=== PATIENT | male | born 1970 | race Caucasian/White ===

== ENCOUNTER 2016-10-06 02:04 | Inpatient (IN) | payer BC ==
[2016-10-06] MEDS ORDERED: Diphth/Teta/Acell Pertusis* 0.5 ML VIAL ** FOR 6 WKS TO 7 YRS OLD IM ONE (03:54)
[2016-10-06] MEDS ORDERED: NS 0.9% 1000 ML* 1,000 ML IV ONE ×2 (04:03→06:03)
[2016-10-06 04:55] LABS: Hematocrit 47 % (42-52); Hemoglobin 15.7 g/dl (14.0-18.0); Mean Corpuscular HGB Conc 33 g/dl (31-36); Mean Corpuscular Hemoglobin 30 pg (27-31); Mean Corpuscular Volume 89 fL (80-94); Mean Platelet Volume 9 um3 (7.4-10.4); Red Cell Distribution Width 13 % (10.5-15); White Blood Count 15.4 10^3/ul (3.5-10.8)
[2016-10-06 04:56] LABS: Add Diff/Slide Review? Slide Review Added; Comments Flag Yes
[2016-10-06 05:04] LABS: Albumin 4.3 g/dL (3.2-5.2); BUN/Creatinine Ratio 16.5 (8-20); Calcium 9.2 mg/dL (8.6-10.3); EGFR African American 134.6 (>60); EGFR Non-African American 104.7 (>60); Globulin 2.9 g/dL (2-4); Potassium 3.8 mmol/L (3.5-5.0); Total Bilirubin 0.7 mg/dL (0.2-1.0); Total Protein 7.2 g/dL (6.4-8.9)
[2016-10-06] MEDS ORDERED: Iohexol 300* (CONTRAST) 10 ML SDV IV ONE (05:12)
[2016-10-06 05:40] LABS: Immature Granulocytes 19 % (0-9); Neutrophil % 67 % (38-83); RBC Morphology Normal (Normal)
[2016-10-06 07:09] LABS: Urine Bacteria Absent (Absent); Urine Bilirubin Negative (Negative); Urine Glucose Negative (Negative); Urine Nitrite Negative (Negative)
[2016-10-06 07:26] LABS: Hematocrit 43 % (42-52); Hemoglobin 14.3 g/dl (14.0-18.0); Mean Corpuscular HGB Conc 33 g/dl (31-36); Mean Corpuscular Hemoglobin 30 pg (27-31); Mean Corpuscular Volume 90 fL (80-94); Mean Platelet Volume 9 um3 (7.4-10.4); Red Blood Count 4.77 10^6/ul (4.0-5.4); Red Cell Distribution Width 13 % (10.5-15)
--- NOTE | 2016-10-06 08:32 | RAD ---
Indication: Head injury. Syncope. CT of the brain was performed without IV contrast. Ventricular structures are midline. No midline shift is noted. The extra-axial spaces are unremarkable. There is no evidence of intracranial mass or hemorrhage. There is no evidence of intracranial mass or hemorrhage noted. Mastoid air cells and paranasal sinuses are grossly unremarkable. Incidentally noted is a mucus retention cyst in the left maxillary sinus. IMPRESSION: No intracranial mass or hemorrhage is noted.
--- NOTE | 2016-10-06 08:57 | RAD ---
INDICATION: Puncture wound RIGHT anterior abdomen. Flank and chest pain. Post appendectomy. History of nephrolithiasis. COMPARISON: None. TECHNIQUE: Multidetector CT images were obtained from the lung apices to the ischial tuberosities with 139 mL Omnipaque 300 IV contrast. No oral contrast administered. CHEST REPORT: Clear lungs and pleural spaces. Negative for pneumothorax. Negative for mediastinal hematoma. Normal diameter thoracic aorta without evidence for traumatic injury accounting for motion artifact. Physiologic small volume of fluid in the superior pericardial recess without concern. Negative for cardiomegaly or pericardial effusion. Negative for thoracic lymphadenopathy. Negative for sternal, rib, thoracic spine, or other thoracic fracture. CHEST IMPRESSION: No evidence for traumatic thoracic injury. ABDOMEN PELVIS REPORT: Multiple sharply circumscribed water density hepatic cysts. Most of the cysts are smaller than 1 cm. Dominant 6.6 x 5.9 and 3.2 x 2.6 cm cyst at the RIGHT posterior hepatic segment. No suspicious focal hepatic lesions or evidence for hepatic laceration. Unremarkable gallbladder, pancreas, spleen. Negative for CT abnormality of the upper GI or small bowel. Post appendectomy. Unremarkable colon. Negative for ascites or free air. Small fat-containing umbilical hernia without inflammatory change. Normal adrenal glands. A few bilateral renal cortical cysts are present with 2 cysts measuring greater than 1 cm at the LEFT kidney including 3.7 x 4.9 cm cyst at the midpole and 3.5 x 2.9 cm cyst at the upper pole. No suspicious focal renal lesions or hydronephrosis. Symmetric nephrograms and pyelograms. Unremarkable ureters and urinary bladder. Symmetric seminal vesicles. Negative for lymphadenopathy. Normal diameter abdominal aorta and iliac arteries. Physiologic distention of the IVC. Variant LEFT hemisacralization of L5. Minimally displaced fractures of the RIGHT transverse processes of the L1 and L2 vertebral bodies without appreciable periosseous hematoma. Mild RIGHT flank subcutaneous edema without visualized loculated hematoma or subcutaneous emphysema. No additional fractures evident. ABDOMEN PELVIS IMPRESSION: 1. No abdominal pelvic visceral injuries evident. 2. Minimally displaced fractures of the RIGHT transverse processes of the L1 and L2 vertebral bodies without appreciable periosseous hematoma. No additional fractures evident. Results discussed with Dr. Chung in the ED 10/06/2016 8:50 AM EDT
[2016-10-06] MEDS ORDERED: HYDROcodone/ACETAMIN 5-325 MG* 1 TAB PO ONE (09:04)
[2016-10-06] MEDS ORDERED: Ibuprofen TAB* 800 MG PO PRN (11:34)
[2016-10-06] MEDS ORDERED: amLODIPine TAB* 5 MG PO SCH (14:00)
--- NOTE | 2016-10-06 15:20 | ECHO ---
Patient: [facility] Rec#: [id number] : 1970 Date: 10/06/2016 Age: 46y Height: 182.88 cm / 72.0 in Weight: 106.14 kg / 233.9 lbs Sex: M BSA: 2.28 Room#: 450 Admit Date#: 10/06/2016 Type: Inpatient Referring: Aura Nelson NP Reading: Patel Blackwell MD Lubrication Worker: Annamaria Berumen RDCS CC: Lesly Be NP Transthoracic Echocardiogram Indication: Syncope BP: 127/74 HR: 64 Rhythm: NSR Findings History: +family history of heart disease, admitted after a syncopal episode. Technical Comments: The study quality is good. Completed at 1426. Left Ventricle: The left ventricular chamber size is normal. Mild concentric left ventricular hypertrophy is observed. The estimated ejection fraction is 55-60%. There is no consistent Doppler evidence of clinically significant diastolic dysfunction. Left Atrium: The left atrial chamber size is normal. Right Ventricle: The right ventricle is mildly dilated. The right ventricular global systolic function is normal. Right Atrium: The right atrial cavity size is normal. Aortic Valve: The aortic valve is trileaflet. There is no evidence of aortic regurgitation. There is no evidence of aortic stenosis. Mitral Valve: The mitral valve leaflets are mildly thickened. There is a trace of mitral regurgitation. There is no evidence of mitral stenosis. Tricuspid Valve: The tricuspid valve leaflets are normal. There is no evidence of tricuspid valve regurgitation. Unable to estimate the right ventricular systolic pressure. There is no tricuspid stenosis. Pulmonic Valve: The pulmonic valve appears normal. There is mild pulmonic regurgitation. There is no pulmonic stenosis. Pericardium: The pericardium appears normal. Aorta: There is no dilatation of the ascending aorta. There is no dilatation of the aortic arch. There is no dilation of the aortic root. Pulmonary Artery: The main pulmonary artery appears normal. Venous: The venous system is not well visualized. Summary: There was not any prior study for comparison. Conclusions The left ventricular chamber size is normal. Mild concentric left ventricular hypertrophy is observed. The estimated ejection fraction is 50-55%. There is paradoxical septal wall motion secondary to conduction abnormality. There is a trace of mitral regurgitation. There is mild pulmonic regurgitation. Measurements Name Value Normal Range RVIDd (AP) 2D 3.2 cm (0.9 - 2.6) RVDdMajor (2D) 5.2 cm (2.2 - 4.4) RAd ISD 4CH 4.8 cm (3.4 - 4.9) RA (A4C)W 4.2 cm (2.9 - 4.6) IVSd (2D) 1.1 cm (0.6 - 1) LVPWd (2D) 1.3 cm (0.6 - 1) LVIDd (2D) 3.6 cm (3.6 - 5.4) LVIDs (2D) 2.7 cm - LV FS (2D) 24 % (25 - 45) Aortic Annulus 2.2 cm (1.4 - 2.6) Ao root diameter (2D) 3.5 cm (2.1 - 3.5) Ascending Ao 3.1 cm (2.1 - 3.4) Aortic arch 2.6 cm (1.8 - 3.4) Descending Ao 1.3 cm - LA dimension (AP) 2D 3.7 cm (2.3 - 3.8) LAd ISD 4CH 5.1 cm (2.9 - 5.3) LA ISD 4CH W 4.2 cm (2.5 - 4.5) Name Value Normal Range LA ESV SP 4CH (A/L) 44 ml - LA ESV SP 2CH (A/L) 98 ml - LA ESV BP (A/L) 70 ml - LA ESV BP (A/L) index 30.55 ml/m2 - LA ESV SP 4CH (MOD) 41 ml - LA ESV SP 2CH (MOD) 91 ml - Name Value Normal Range MV E-wave Vmax 0.9 m/sec - MV deceleration time 174 msec - MV A-wave Vmax 0.8 m/sec - MV E:A ratio 1.09 ratio - LV septal e' Vmax 0.09 m/sec - LV lateral e' Vmax 0.12 m/sec - LV E:e' septal ratio 10 ratio - LV E:e' lateral ratio 7.5 ratio - Name Value Normal Range AV Vmax 1.3 m/sec - AV VTI 28.4 cm - AV peak gradient 6.25 mmHg - AV mean gradient 2.73 mmHg - LVOT Vmax 1.2 m/sec - LVOT VTI 24.2 cm - LVOT peak gradient 5.58 mmHg - LVOT mean gradient 2.2 mmHg - Name Value Normal Range PV Vmax 0.6 m/sec - PV peak gradient 1.65 mmHg -
--- NOTE | 2016-10-06 15:58 | HP ---
HOSPITAL MEDICINE HISTORY AND PHYSICAL: DATE OF ADMISSION: 10/06/16 PRIMARY CARE PROVIDER: Lesly Be NP ATTENDING PHYSICIAN: Dr. Khurram Cook*(dictation provided by Aura Nelson NP) CHIEF COMPLAINT: Syncope. HISTORY OF PRESENT ILLNESS: Mr. Whitfield is a 46-year-old male with no significant past medical history, who presented to the hospital today after report of a syncopal episode with fall from a porch. Mr. Whitfield states that he has been in his normal state of health with no acute complaints. Yesterday, he worked in office during the day, in the evening, he drank 1 beer and then went to bed. In the middle of the night, he woke up, suddenly needed to urinate. He was staying in a [place] to his home, he got up, went to the door and went outside to go into the main house to use the bathroom. However, by the time he got to the deck of the yurt, he felt very lightheaded and began to have tunnel vision and suspected that he was going to faint. The next thing he remembers is being on the ground having fallen off the deck. He suspects that perhaps he was unconscious for about 20 minutes. He got up and went into the house and realized that he had some significant pain and therefore ended up coming to the emergency room for evaluation. Mr. Whitfield denies any other recent complaints. He has had no chest pain, no shortness of breath, no nausea, no abdominal pain. He has been eating and drinking normally. He has been afebrile. He has no acute weight loss. In the emergency room, Mr. Whitfield had workup including an EKG which showed no evidence of ischemia with a sinus rhythm. CT of the brain which showed no evidence of intracranial abnormality. He went on for a chest, abdomen, and pelvis CT, which did show that he had a minimally displaced fracture of the right transverse process of the L1-L2 vertebral bodies. This was without appreciable periosseous hematoma. No other injury was identified. I will note that the patient did have leukocytosis on arrival; the white blood cell count of 15.4 and a bandemia of 19%. His labs were rechecked 3 hours later and the bandemia had resolved and his white count fell to 12. He is afebrile. PAST MEDICAL HISTORY: None. MEDICATIONS: Ibuprofen p.r.n. ALLERGIES: No known drug allergies. FAMILY HISTORY: The patient reports that his mom had breast cancer. His dad had prostate cancer. His mom's father had a heart attack and in his 40s. His dad also had a heart attack in his 40s, but he is alive and well. 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 SOCIAL HISTORY: The patient states he drinks beer no more than 1 on most nights with perhaps 2 to 3 on the weekend. He has never had any symptoms of alcohol withdrawal. No reported drug use. No smoking. He states his daughter , Roula, will be the healthcare proxy. REVIEW OF SYSTEMS: A 14-point review of systems was completed with Mr. Whitfield and all those not mentioned above were negative. PHYSICAL EXAMINATION GENERAL: Mr. Whitfield is sitting up in the bed. He is in no acute distress. VITAL SIGNS: Temperature 97.5, pulse rate 55, respiratory rate 16, blood pressure 127/74. LUNGS: Clear to auscultation bilaterally with no accessory muscle use and good aeration. HEART: S1 and S2. No murmur, rub, or gallop, and regular. ABDOMEN: Soft, nontender with bowel sounds positive x4. EXTREMITIES: No cyanosis or edema. NEURO: He is alert and oriented x3. He moves all extremities equally. There is no facial asymmetry or focal weakness. Extraocular movements are intact. SKIN: The patient has abrasions on his right arm and a small abrasion to his right flank, and abrasion to the back of his left knee. DIAGNOSTIC STUDIES/LAB DATA: WBC 15.4 on arrival, and then 12 three hours later; hemoglobin 15.7, hematocrit 47, platelet count 239. He had a bandemia on arrival of 19%; this resolved on repeat check. Sodium 137, potassium 3.8, chloride 105, serum bicarbonate 26, BUN 13, creatinine 0.79, glucose 110. Urine shows no evidence of infection. EKG: Sinus rhythm with no evidence of ischemia and heart rate of 70. CT brain shows intracranial mass or hemorrhage noted. Chest, abdomen, and pelvis CT as follows: "No abdominal or pelvic visceral injuries evident, minimally displaced fractures of the right transverse process of the L1 and L2 vertebral bodies without appreciable periosseous hematoma. No additional fractures evident." ASSESSMENT AND PLAN: Mr. Whitfield is a 46-year-old male with no significant past medical history, who presents to the hospital today after syncopal episode in the middle of the night resulting in a fall from the deck, but no serious injury other than L1-L2 transverse process fracture. Our plans are for observation in the hospital for the followin. Syncope: No etiology for syncope is determined. He is not dehydrated. He has been feeling well, otherwise concern would be for a possible arrhythmia or other cardiac abnormality. Plan to monitor on telemetry overnight and he will also go on for a transthoracic echocardiogram. He has no chest pain or other symptom of acute coronary syndrome. CT brain was negative. 2. Fall: The patient only has L1-L2 transverse process fracture. His pain is well controlled. I have encouraged him to try Tylenol and ibuprofen as needed for pain. 3. DVT prophylaxis with SCDs. 4. Disposition will be to telemetry floor. 5. Code status is full code. TIME SPENT: Approximately 60 minutes was spent on the admission of this patient , more than half of the time was spent with the patient at the bedside reviewing the events leading up to this hospitalization, performing the physical examination, and reviewing the plan of care. AURA NELSON NP CC: Lesly Be NP* [id number]/[facility] #: [id number] MTDD
[2016-10-06] MEDS: Acetaminophen TAB* 325 MG PO PRN (22:15)
--- NOTE | 2016-10-07 17:14 | PN ---
Subjective Date of Service: 10/07/16 Interval History: Patient feels well today without complaints. Objective Active Medications: Acetaminophen (Tylenol Tab*) 650 mg PO Q6H PRN PRN Reason: PAIN Last Admin: 10/06/16 22:15 Dose: 650 mg Ibuprofen (Motrin Tab*) 800 mg PO Q8H PRN PRN Reason: PAIN Vital Signs 10/06/16 10/06/16 10/07/16 19:42 23:40 03:49 Temperature 98.0 F 97.4 F 98.2 F Pulse Rate 73 77 66 Respiratory 18 16 20 Rate Blood Pressure 116/64 131/67 123/81 (mmHg) O2 Sat by Pulse 96 100 97 Oximetry 10/07/16 10/07/16 10/07/16 07:29 08:00 10:51 Temperature 97.9 F 97.5 F Pulse Rate 69 80 Respiratory 18 18 17 Rate Blood Pressure 109/63 132/73 (mmHg) O2 Sat by Pulse 97 99 Oximetry 10/07/16 15:22 Temperature 97.6 F Pulse Rate 74 Respiratory 16 Rate Blood Pressure 124/74 (mmHg) O2 Sat by Pulse 99 Oximetry Oxygen Devices in Use Now: None Appearance: Wd/WN gentleman sitting up in bed in NAD Ears/Nose/Mouth/Throat: Mucous Membranes Moist Neck: No Thyroid Enlargement, Masses Respiratory: Clear to Auscultation Cardiovascular: NL Sounds; No Murmurs; No JVD Abdominal: NL Sounds; No Tenderness; No Distention, No Hepatosplenomegaly Lymphatic: No Cervical Adenopathy Extremities: No Clubbing, Cyanosis Skin: No Rash or Ulcers Neurological: Alert and Oriented x 3 Result Diagrams: 10/06/16 07:18 10/06/16 04:25 Assess/Plan/Problems-Billing Assessment: 46 year old who passed out and may or may not have lost control of his urine and was confused when he woke up. - Patient Problems (1) Loss of consciousness Current Visit: Yes Status: Acute Code(s): R40.20 - UNSPECIFIED COMA SNOMED Code(s): 131065935 Comment: I am concerned about seizure. Discussed with Dr. Ansari who will see the patient. Order MRI and EEG. Patient also had an episode a couple of years ago where he woke up and had lost control of his urine in the middle of the night. (2) DVT prophylaxis Current Visit: Yes Status: Acute Code(s): WKU6475 - SNOMED Code(s): 086908850 Comment: heparin sub q (3) Full code status Current Visit: Yes Status: Acute Code(s): Z78.9 - OTHER SPECIFIED HEALTH STATUS SNOMED Code(s): 092879414
[2016-10-07] MEDS: Acetaminophen TAB* 325 MG PO PRN (23:32)
--- NOTE | 2016-10-08 12:56 | CONS ---
NEUROLOGY CONSULT: DATE OF CONSULT: 10/08/16 REFERRING PHYSICIAN: Aura Nelson NP. PRIMARY CARE PHYSICIAN: Lesly Be NP. LOCATION: He is in inpatient room 450. CHIEF COMPLAINT: Syncope. HISTORY OF PRESENT ILLNESS: Presley Whitfield is a 46-year-old right-handed man who got up in the middle of the night on 10/06/16 as he had to urinate. He was sleeping outside in a hut and remembers exiting the hut and closing the door behind him. He felt lightheaded as though he was going to faint and started to turned around to go back in to lie down. He developed tunnel vision and then loss of vision and loss of consciousness. He came to on the ground outside on a deck having smashed into a bunch of pots and a sculpture about 3 feet from where he had been standing. He had a bump on his head and his back was sore and he had cuts on his arms. He made it back into the hut and changed his cloths, which were wet as he had been laying on the ground and which was wet. He realized that he was injured and then contacted his daughter who is in the house and she brought him to the emergency room and he was admitted. He believes he was on the ground for perhaps 20 minutes. He knew where he was when he came to and was able to get back into the hut and change his cloths. He was not incontinent of bowel and he is not sure if he was incontinent of urine as his cloths were wet from being outside. He had not bitten his tongue. There is no prior history of faints and no history of seizures. He has been knocked out twice when he was about a college age student when he banged his head in various circumstances. There is no history of faints, lightheadedness, or heart disease. He had not been ill recently. When he got up to in the middle of the night to urinate, he had his usual sense of bladder pressure, but nothing unusual. The one exception is he felt like he had to have a bowel movement at the same time. He had one beer and had late dinner at about 7:30 and went to bed about 9:30. He did not have more than one beer. He does not recall any shortness of breath or chest pain. He had a mild headache last night, but generally does not get headaches other than perhaps once a month or if he is sick. Evaluations when he came to the hospital is notable for CT of the brain, which I reviewed and was interpreted as normal. He had a CT of the abdomen and pelvis revealing a right transverse process fracture of L1 and L2 vertebral bodies. He had an elevated white blood cell count of 15.4 with 90% bandemia when he came in, which resolves spontaneously. He has not had any fevers. PAST MEDICAL HISTORY: His past medical history is notable for excellent health. There is no history of hypertension, heart disease, or diabetes. MEDICATIONS: He does not take any prescription medications. ALLERGIES: He does not have any drug allergies. FAMILY HISTORY: Notable for traumatic brain injury in his father who then developed epilepsy. Grandmother had multiple sclerosis and might have had seizures. His daughter has had syncopal episodes when she had blood drawn. SOCIAL HISTORY: He drinks about one beer per night most. He does not smoke. 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 REVIEW OF SYSTEMS: Negative for significant change in weight, fevers, or chills. He has not had any recent abdominal problems. He does have a sore back since this injury as well as a sore arm. He has not had any breathing problems. PHYSICAL EXAMINATION: He is overweight. He has been afebrile throughout his hospital stay. Blood pressure most recently 127/65 and has been running generally in that range throughout his hospital stay. Heart rate is about 70 and regular and respirations 16. Oxygen saturation is 99% on room air. Lungs are clear bilaterally. Head is atraumatic, other than mild abrasion in the right worship. Oral mucosa is moist and atraumatic. Heart is in a regular rate and rhythm without murmurs heard. Carotid pulses are present and I do not hear any cervical bruits. He has an abrasion in the right shoulder. Neurological exam, pupils react equally from 4 down to 2.5 mm. Funduscopic exam reveals sharp discs bilaterally. Eye movements are normal and visual ca are full to confrontation. Facial musculature is intact and symmetric. Facial sensation to light touch is intact and symmetric. Palate and tongue are appear normal, tongue protrudes in the midline and palate rises symmetrically. Speech is clear without dysarthria. Hearing is intact bilaterally and neck strength is intact. Motor exam is a little limited by back pain, but he has normal muscle tone, bulk , and strength proximally and distally in the upper and lower extremities. There is no pronator drift. There is no rest or action tremor in finger-to- nose maneuver. He is not able to do a [id number] because of the back pain. Sensory exam is intact to light touch and vibration in the limbs. Romberg sign is absent. Gait is cautious because of the back pain, but he is quite stable. There is no ataxia. Deep tendon reflexes are intact and symmetric in upper and lower extremities and plantar responses on flex bilaterally. Mental status finds him to be alert and oriented, he is an excellent detailed historian. He is fully oriented to person, place, and time and he is able to give good detail other than the time that he was unconscious. Attention, concentration, and fund of knowledge are all adequate. Language is fluent. DIAGNOSTIC STUDIES/LAB DATA: Includes CBC mentioned above. Chemistry profile is unremarkable, lactic acid yesterday morning was 0.8. Liver enzymes are normal. Urinalysis notable for trace red blood cells and otherwise unremarkable. Urine specific gravity was high; however, at 1.035. IMPRESSION: Is that of a single syncopal episode. He had typical premonitory symptoms of syncope and was fully oriented when he came to. He may have had a concussion as well as he was out for a fairly prolonged period of time and had hit his head. Given his age and lack of prior syncopal episodes, I agree he needs a full cardiac workup. He he has had an echocardiogram, which was interpreted as normal and his EKG looks normal with normal intervals. He has a MRI of the brain pending and should have an EEG as well. Unless those show abnormalities, I think the diagnosis would be a single syncopal episode. [id number]/[facility] #: [id number] [facility]
--- NOTE | 2016-10-08 14:49 | PN ---
Subjective Date of Service: 10/08/16 Interval History: Patient without complaints today. Objective Active Medications: Acetaminophen (Tylenol Tab*) 650 mg PO Q6H PRN PRN Reason: PAIN Last Admin: 10/07/16 23:32 Dose: 650 mg Ibuprofen (Motrin Tab*) 800 mg PO Q8H PRN PRN Reason: PAIN Vital Signs 10/07/16 10/07/16 10/07/16 15:22 19:24 23:28 Temperature 97.6 F 98.1 F 97.8 F Pulse Rate 74 80 70 Respiratory 16 16 16 Rate Blood Pressure 124/74 124/67 124/79 (mmHg) O2 Sat by Pulse 99 98 98 Oximetry 10/08/16 10/08/16 10/08/16 03:52 07:45 08:00 Temperature 97.7 F 97.5 F Pulse Rate 61 73 Respiratory 16 16 Rate Blood Pressure 115/74 127/65 (mmHg) O2 Sat by Pulse 99 99 Oximetry 10/08/16 11:34 Temperature 97.4 F Pulse Rate 76 Respiratory Rate Blood Pressure 129/72 (mmHg) O2 Sat by Pulse 100 Oximetry Oxygen Devices in Use Now: None Appearance: WD/WN gentleman sitting up in bed in NAD Eyes: No Scleral Icterus Ears/Nose/Mouth/Throat: Mucous Membranes Moist Neck: NL Appearance and Movements; NL JVP, No Thyroid Enlargement, Masses Respiratory: Clear to Auscultation Cardiovascular: NL Sounds; No Murmurs; No JVD, RRR Abdominal: NL Sounds; No Tenderness; No Distention, No Hepatosplenomegaly Lymphatic: No Cervical Adenopathy Extremities: No Edema, No Clubbing, Cyanosis Skin: No Rash or Ulcers Neurological: Alert and Oriented x 3 Result Diagrams: 10/06/16 07:18 10/06/16 04:25 Assess/Plan/Problems-Billing Assessment: 46 year old who passed out and may or may not have lost control of his urine and was confused when he woke up. - Patient Problems (1) Loss of consciousness Current Visit: Yes Status: Acute Code(s): R40.20 - UNSPECIFIED COMA SNOMED Code(s): 651364026 Comment: For MRI and EEG in am. Appreciate neuro's input. (2) DVT prophylaxis Current Visit: Yes Status: Acute Code(s): AZL8561 - SNOMED Code(s): 049532271 Comment: heparin sub q (3) Full code status Current Visit: Yes Status: Acute Code(s): Z78.9 - OTHER SPECIFIED HEALTH STATUS SNOMED Code(s): 603363662
--- NOTE | 2016-10-09 11:01 | RAD ---
INDICATION: Possible seizure. COMPARISON: Comparison is made with a prior CT of the brain from October 06, 2016. TECHNIQUE: Sagittal T1, axial T1, T2, susceptibility, FLAIR and diffusion weighted images were obtained. FINDINGS: The ventricles and cisterns appear to be within normal limits. There is prominence of the CSF spaces adjacent to the frontal lobes on both sides secondary to either subdural hygromas or atrophy. No significant focal abnormality or mass effect is seen. No focal temporal lobe volume loss is seen. The hippocampal formations appear to be symmetric and within normal limits. No areas of restricted diffusion are present. There is no evidence for infarct or hemorrhage. There is a 2.0 x 1.8 cm nodular lesion in the left maxillary sinus most consistent with a mucous retention cyst or polyp. There is also opacification of a single right ethmoid air cell. The paranasal sinuses and mastoid air is is otherwise appear clear. IMPRESSION: PROMINENT CSF SPACES ADJACENT TO THE FRONTAL LOBES MOST CONSISTENT WITH SUBDURAL HYGROMAS OR LESS LIKELY FOCAL ATROPHY.
[2016-10-09 16:22] VITALS: BP 139/82
--- NOTE | 2016-10-10 10:33 | EEG ---
ELECTROENCEPHALOGRAPHY: DATE OF STUDY: 10/09/16 REFERRING PROVIDER: Dr. Israel He is an inpatient in [address] [place] [address]. CLINICAL PROBLEM: Episode of loss of consciousness after getting [facility] the [facility]. Rule out seizure disorder. MEDICATIONS: Consists only of ibuprofen and acetaminophen. REPORT: This 16-channel EEG is remarkable for background activity consisting of a poorly formed alp hammer rhythm in the posterior derivations at about 9 cycles per second, which is symmetric and suppress ed by eye opening. Moderate voltage bifrontal beta rhythms are noted and are symmetric. Muscle art ifact and eye movement artifact is noted occasionally. The patient is clinically awake at the onset of the tracing. Activation procedures are not attempted. The patient may drowse with some central slowing, but does not sleep. There are no focal, lateralized, or epileptiform abnormalities. CLINICAL IMPRESSION: Normal awake EEG. [id number]/[facility] #: [id number]
--- NOTE | 2016-10-10 14:23 | DS ---
DISCHARGE SUMMARY: DATE OF ADMISSION: 10/06/16 DATE OF DISCHARGE: 10/09/16 ADMISSION DIAGNOSIS: Syncope. DISCHARGE DIAGNOSIS: Syncope versus seizure. HOSPITAL COURSE: The patient is a 46-year-old gentleman who presented to [facility] after passing out in his yard. Please see H and P for further details. The patient did complain of some confusion after waking up, may have lost control of his bladder, and so there was concern about a possible seizure, so the patient stayed for an MRI and EEG, both of which were unremarkable. The patient had an unremarkable hospital course as well. His transthoracic echocardiogram was also unremarkable. The patient was stable for discharge to home on 10/09/16 with close followup with his PCP. PHYSICAL EXAMINATION ON THE DATE OF DISCHARGE: Temperature 97.9 degrees, heart rate 83 beats per minute, respiratory rate 16 breaths per minute, pulse ox 100% on room air, blood pressure 142/86. HEENT: Normocephalic, atraumatic. Pupils equal, round, and reactive to light. Moist mucous membranes. Neck: Supple. No JVD, bruits, palpable thyroid, or lymphadenopathy. Chest is clear to auscultation and percussion bilaterally. Cardiovascular Exam: S1, S2 appreciated. Regular rate and rhythm. No murmurs, gallops, or rubs. Abdominal Exam: Positive bowel sounds in all 4 quadrants. Soft, nontender, nondistended. No hepatosplenomegaly. Extremities: No cyanosis, clubbing, or edema. +2 peripheral pulses bilaterally. Neuro: Alert and oriented x3. Moves all extremities. Skin: No rashes or abnormalities. STUDIES DONE WHILE IN THE HOSPITAL: Brain CT, 10/06/16, impression: No intracranial mass or hemorrhage is noted. CT of the chest, abdomen and pelvis shows no abdominopelvic visceral injury is evident. Minimal displaced fracture of the right transverse process of the L1- L2 vertebral bodies without appreciable periosseous hematoma. No additional fractures evident. Transthoracic echocardiogram, 10/06/16, impression: Left ventricular chamber size is normal. Mild concentric left ventricular hypertrophy observed. Estimated ejection fraction 50% to 55%. Paradoxical septal wall motion secondary to conduction abnormality, trace mitral regurg, mild pulmonic regurg. Brain MRI, 10/09/16, impression: Prominent CSF spaces adjacent to frontal lobes , most consistent with subdural hygromas or less likely atrophy. EEG, preliminary report, no evidence of epileptiform activity. DISCHARGE MEDICATIONS: Ibuprofen 200 mg every 6 hours as needed. DISCHARGE PLAN: The patient will be discharged home. He will follow up with his PCP within 1 week. There was some paradoxical septal wall motion abnormalities on the transthoracic echo, but nothing evident while on telemetry. The patient may benefit from a Holter monitor as an outpatient. This could be determined with his PCP. TIME SPENT: Over 40 minutes was spent on this discharge, more than 25 minutes of which was spent in direct tyeb-lf-soys contact with the patient in evaluation , physical exam, counseling, and coordination of care. CC: Dr. Freddie Ansari; Lesly Be NP * [id number]/[facility] #: [id number] NADEGE
== END 2016-10-09 18:01 | disposition home or self-care (01) | DRG 204 ==
LOC: ED 02:04 → MEDTELE 09:07 → OBSVTOIN 10-08 09:00
PROVIDERS: ADMIT Internal Medicine; ATTEND Internal Medicine
PROC: 4A00X4Z Measurement of Central Nervous Electrical Activity, External Approach (ICD-10-PCS; principal; 2016-10-09)
DX: R55 Syncope and collapse (principal); S32.019A Unspecified fracture of first lumbar vertebra, initial encounter for closed fracture; S32.029A Unspecified fracture of second lumbar vertebra, initial encounter for closed fracture; D72.825 Bandemia; E66.3 Overweight; S40.811A Abrasion of right upper arm, initial encounter; S40.211A Abrasion of right shoulder, initial encounter; I37.1 Nonrheumatic pulmonary valve insufficiency; W17.89XA Other fall from one level to another, initial encounter; S30.811A Abrasion of abdominal wall, initial encounter; S80.212A Abrasion, left knee, initial encounter; S00.81XA Abrasion of other part of head, initial encounter; I34.0 Nonrheumatic mitral (valve) insufficiency; Z68.31 Body mass index [BMI] 31.0-31.9, adult; Z82.0 Family history of epilepsy and other diseases of the nervous system; Z80.3 Family history of malignant neoplasm of breast; Z82.49 Family history of ischemic heart disease and other diseases of the circulatory system; Z80.42 Family history of malignant neoplasm of prostate; Y92.096 Garden or yard of other non-institutional residence as the place of occurrence of the external cause
CPT/HCPCS: 36415; 70450; 70551; 71260; 74177; 80053; 81003; 81015; 83605; 85025; 93005; 93306; 95816; A9270-GY; G0378; Q9967

== ENCOUNTER 2019-07-27 10:24 | Emergency (ER) | payer BC ==
--- OUTSIDE RECORDS SUMMARY | 2019-07-27 10:36 | XMS REPORT | Continuity of Care Document ---
:1970 External Reference #:[id number] Author Name Lesly Be, NUCLEAR PHARMACIST-C Address [address] [place] [address] Problems Description No Information Available Social History Type Date Description Comments Sex Unknown Tobacco Use Start: Unknown Never Smoked Cigarettes one cigar every other month at most ETOH Use Occasionally consumes beer 3 or 4 beers per week Recreational Drug Use Denies Drug Use Enjoy Exercising Enjoys exercising trying to walk once daily, gets out out 4 days each week, tries to walk briskly Allergies, Adverse Reactions, Alerts Description No Known Drug Allergies Medications Active Medications SIG Qnty Indications Ordering Provider Date Asmanex Twisthaler inhale two puffs 1units J45.901 Lesly Be, [birth year] Metered Doses by mouth every NUCLEAR PHARMACIST-C morning 220mcg/Inh Aerosol Ventolin HFA inhale two puffs 18units J45.901 Lesly Be, 09/22/2014 by mouth every 4 NUCLEAR PHARMACIST-C 108(90Base) mcg/Act hours as needed Aerosol for wheeze Viagra use 1/2 to 1 tab 10tabs N50.9 Lesly Be, 02/06/2014 50mg Tablets 1/2hr prior to NUCLEAR PHARMACIST-C activity Immunizations CPT Code Status Date Vaccine Lot # [id number] Given 07/03/2019 Influenza Virus Vaccine, Quadrivalent, 3 Yr > [id number] Quad, Preserv Free [id number] Given 03/16/2017 Influenza Virus Vaccine, Quadrivalent, 3 Yr > [id number] Quad, Preserv Free [id number] Given 05/17/2015 Influenza Virus Vaccine, Quadrivalent, 3 Yr > [id number] Quad, Preserv Free 98924 Given 03/09/2014 Influenza Virus Vaccine, Quadrivalent, 3 Yr > [id number] Quad, Preserv Free 03633 Given 10/08/2009 Tdap (Adacel) Vital Signs Date Vital Result Comment 07/03/2019 3:38pm Weight 256.00 lb Weight 116.122 kg BP Systolic 130 mmHg BP Diastolic 90 mmHg Heart Rate 72 /min Body Temperature 98.0 F Respiratory Rate 16 /min O2 % BldC Oximetry 98 % 07/10/2018 2:56pm Weight 252.00 lb Weight 114.307 kg BP Systolic 140 mmHg BP Diastolic 80 mmHg Heart Rate 77 /min Body Temperature 97.4 F O2 % BldC Oximetry 99 % Results Test Acquired Date Facility Test Result H/L Range Note CBC Auto 07/03/2019 [facility] White Blood 7.4 10^3/ uL Normal 3.5-10.8 Diff [phone] Count Red Blood Count 4.98 10^6/uL Normal 4.18-5.48 Hemoglobin 15.5 g/dL Normal 14.0-18.0 Hematocrit 45 % Normal 42-52 Mean Corpuscular Volume 90 fL Normal 80-94 Mean Corpuscular Hemoglobin 31 pg Normal 27-31 Mean Corpuscular HGB Conc 35 g/dL Normal 31-36 Red Cell Distribution Width 13 % Normal 10-15 Platelet Count 278 10^3/uL Normal 150-450 Mean Platelet Volume 8.9 fL Normal 7.4-10.4 Abs Neutrophils 3.3 10^3/uL Normal 1.5-7.7 Abs Lymphocytes 3.1 10^3/uL Normal 1.0-4.8 Abs Monocytes 0.8 10^3/uL Normal 0-0.8 Abs Eosinophils 0.2 10^3/uL Normal 0-0.6 Abs Basophils 0.1 10^3/uL Normal 0-0.2 Abs Nucleated RBC 0.0 10^3/uL Granulocyte % 44.7 % Lymphocyte % 41.2 % Monocyte % 10.7 % Eosinophil % 2.5 % Basophil % 0.9 % Nucleated Red Blood Cells % 0.1 Comp Metabolic 07/03/2019 [facility] Sodium 141 mmol/ L Normal 135-145 Panel [phone] Potassium 4.3 mmol/L Normal 3.5-5.0 Chloride 107 mmol/L Normal 101-111 Co2 Carbon Dioxide 28 mmol/L Normal 22-32 Anion Gap 6 mmol/L Normal 2-11 Glucose 86 mg/dL Normal 70-100 Blood Urea Nitrogen 12 mg/dL Normal 6-24 Creatinine 0.77 mg/dL Normal 0.67-1.17 BUN/Creatinine Ratio 15.6 Normal 8-20 Calcium 9.1 mg/dL Normal 8.6-10.3 Total Protein 6.6 g/dL Normal 6.4-8.9 Albumin 4.2 g/dL Normal 3.2-5.2 Globulin 2.4 g/dL Normal 2-4 Albumin/Globulin Ratio 1.8 Normal 1-3 Total Bilirubin 0.40 mg/dL Normal 0.2-1.0 Alkaline Phosphatase 74 U/L Normal 34-104 Alt 41 U/L Normal 7-52 Ast 22 U/L Normal 13-39 Egfr Non- 106.9 >60 Egfr 129.4 >60 1 Lipid Profile 07/03/2019 [facility] Triglycerides 156 mg/dL 2 (Trig/Chol/HDL) [phone] Cholesterol 140 mg/dL 3 HDL Cholesterol 33.2 mg/dL 4 LDL Cholesterol 76 mg/dL 5 Laboratory 07/03/2019 [facility] TSH (Thyroid 1.73 Normal 0.34-5.60 6 test finding [phone] Stim Horm) mcIU/mL 1 Because ethnic data is not always readily available, this report includes an eGFR for both -Americans and non- Americans. The National Kidney Disease Education Program (NKDEP) does not endorse the use of the MDRD equation for patients that are not between the ages of 18 and 70, are , have extremes of body size, muscle mass, or nutritional status, or are non- or non-. According to the National Kidney Foundation, irrespective of diagnosis, the stage of the disease is based on the level of kidney function: Stage Description GFR(mL/min/1.73 m(2)) 1 Kidney damage with normal or decreased GFR 90 2 Kidney damage with mild decrease in GFR 60-89 3 Moderate decrease in GFR 30-59 4 Severe decrease in GFR 15-29 5 Kidney failure <15 (or dialysis) 2 Desirable: <150 Borderline High: 150-199 High: 200-499 Very High: >500 3 Desirable: <200 Borderline High: 200-239 High: >239 4 Low: <40 Desirable: 40-60 High: >60 5 Desirable: <100 Near Optimal: 100-129 Borderline High: 130-159 High: 160-189 Very High: >189 6 [id number] Procedures Date Code Description Status 07/03/2019 50257 EKG, at Least 12 Leads w/Interpretation and Report Completed Medical Devices Description No Information Available Encounters Description No Information Available Assessments Date Code Description Provider 07/03/2019 R07.9 Chest pain, unspecified ASHOK Cabrera Plan of Treatment Future Appointment(s):08/13/2019 9:45 am - ASHOK Cabrera at [facility]07/03/2019 - JEAN MARIE Cabrera-CR07.9 Chest pain, unspecifiedComments:EKG and labs obtained today. Will refer to cardiology for consultation and stress testing.Follow up:refer to cardiology Functional Status Description No Information Available Mental Status Description No Information Available Referrals Description No Information Available
[2019-07-27 11:21] VITALS: BP 143/86
--- NOTE | 2019-07-27 12:52 | UC ---
Skin Complaint HPI - HPI Summary HPI Summary: 48 yo man, completed course of augmentin on 07/24 for treatment of a dental infection. Last night he had onset of urticaria on the face and neck, without relief with use of benadryl 50mg. He has had increased rash on the hands and forearms. - History of Current Complaint Chief Complaint: UCRash Time Seen by Provider: 07/27/19 12:25 Stated Complaint: RASH Hx Obtained From: Patient Onset/Duration: Sudden Onset Onset Severity: Moderate Current Severity: Moderate Pain Intensity: 0 Location: Diffuse Aggravating Factor(s): Clothing, Humidity, Showering, Touch Alleviating Factor(s): Nothing Associated Signs & Symptoms: Negative: Nausea, Vomiting - Allergy/Home Medications Allergies/Adverse Reactions: Allergies Allergy/AdvReac Type Severity Reaction Status Date / Time No Known Allergies Allergy Verified 07/27/19 11:21 Home Medications: Home Medications Loratadine [Claritin 10 MG CAP] 10 mg PO ONCE 07/27/19 [History Confirmed ] diphenhydrAMINE HCl [Benadryl Allergy 25 MG CAP] 50 mg PO ONCE 07/27/19 [ History Confirmed 07/27/19] PMH/Surg Hx/FS Hx/Imm Hx Previously Healthy: Yes Respiratory History: Asthma - Surgical History Surgical History: None - Family History Known Family History: Positive: Non-Contributory - Social History Occupation: Employed Full-time Alcohol Use: Daily Alcohol Amount: 1 DRINK Substance Use Type: None Smoking Status (MU): Current Some Day Smoker Type: Cigarettes - Immunization History Most Recent Influenza Vaccination: unknown Most Recent Pneumonia Vaccination: never Review of Systems All Other Systems Reviewed And Are Negative: Yes Constitutional: Positive: Negative Skin: Positive: Negative Eyes: Positive: Negative ENT: Positive: Negative Respiratory: Positive: Negative. Negative: Cough Cardiovascular: Negative: Chest Pain Gastrointestinal: Positive: Negative Genitourinary: Positive: Negative Motor: Positive: Negative Neurovascular: Positive: Negative Musculoskeletal: Positive: Negative Neurological/Mental Status: Positive: Negative Psychological: Positive: Negative Is Patient Immunocompromised?: No Physical Exam Triage Information Reviewed: Yes Appearance: Well-Appearing - flushed and uncomfortable with itching., No Pain Distress Vital Signs: Initial Vital Signs Temp 97.8 F 07/27/19 11:13 Pulse 68 07/27/19 11:13 Resp 18 07/27/19 11:13 BP 143/86 07/27/19 11:13 Pulse Ox 99 07/27/19 11:13 Eyes: Positive: Conjunctiva Clear ENT: Positive: Pharynx normal, TMs normal, Other - left ear canal normal, non- tender Neck: Positive: Supple, Nontender, No Lymphadenopathy Respiratory: Positive: Lungs clear, Normal breath sounds, No respiratory distress Cardiovascular: Positive: RRR, No Murmur Musculoskeletal Exam: Normal Neurological Exam: Normal Psychological Exam: Normal Skin Exam: Other - urticarial rash on face, neck, hands, forearms, minimal on trunk. Course/Dx - Course Course Of Treatment: prednisone and use of antihistamines to continue. - Differential Diagnoses - Skin Complaint Differential Diagnoses: Angioedema, Urticaria - Diagnoses Provider Diagnosis: Urticaria Discharge ED - Sign-Out/Discharge Documenting (check all that apply): Patient Departure All imaging exams completed and their final reports reviewed: No Studies - Discharge Plan Condition: Stable Disposition: HOME Prescriptions: predniSONE 20 mg TAB [Deltasone 20 MG TAB*] 60 mg PO DAILY #11 tab Patient Education Materials: Urticaria (ED) Referrals: Lesly Be WIRING MECHANIC [Primary Care Provider] - Ines Goins MD [Medical Doctor] - Additional Instructions: Begin prednisone to suppess hives, taking 3 tablets today with food as the first dose, then 2 tablets with breakfast for the next 4 days. Begin use of a daily antihistamine, such as Zyrtec(cetirazine) 10mg daily at bedtime. Take warm (not hot) showers or baths, and use additional benadryl for control of hives. Ensure that you stay well hydrated and that your moisturize your skin to help decrease the itching. THIS IS MOST LIKELY RELATED TO THE USE OF AUGMENTIN, BUT THERE MIGHT HAVE BEEN OTHER TRIGGERS. YOU HAVE A REFERRAL TO AN BUTCHER SUPERVISOR FOR EVALUATION. - Billing Disposition and Condition Condition: STABLE Disposition: Home
== END 2019-07-27 13:09 | disposition home or self-care (01) ==
LOC: UCCORT 10:24
DX: L50.9 Urticaria, unspecified (principal); J45.909 Unspecified asthma, uncomplicated; F17.210 Nicotine dependence, cigarettes, uncomplicated
CPT/HCPCS: 99212; G0463